=== PATIENT | female | born 2005 | race Hispanic/Latino ===

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

== ENCOUNTER 2023-07-16 02:47 | Inpatient (IN) | payer BC, MEDICAID, SELFPAY ==
[2023-07-16] MEDS ORDERED: NA CHLORIDE 0.9% 100 ML ONE ×3 (03:07→15:57)
[2023-07-16] MEDS ORDERED: NA CHLORIDE 0.9% 1,000 ML ONE (03:07)
[2023-07-16 03:50] LABS: Absolute Basophils 0.1 K/uL (0-0.5); Absolute Lymphocytes (CBC) 3.1 K/uL (0.7-4.9); Absolute Monocytes 1.2 K/uL (0.1-1.3); Absolute Neutrophil 9.7 K/uL (1.8-8.0); Basophils % 0.4 % (0-1.3); Eosinophils % 0.1 % (0-4.4); Hematocrit 38.2 % (36.0-45.0); Hemoglobin 13.1 g/dL (12.0-15.0); MCH 27.7 pg (27.0-35.0); MCHC 34.2 g/dL (32.0-36.0); MCV 81.1 fL (80-100); MPV 7.6 fL (7.6-11.3); Monocytes % 8.3 % (3.3-12.3); Neutrophils % 69.2 % (41.7-73.7); Nucleated Red Blood Cells % 0.1 % (0-0); Platelets 327 thou/uL (152-406); RBC Red Blood Cell Count 4.71 M/uL (3.86-4.86); Red Cell Distribution Width 13.1 % (12.1-15.2)
[2023-07-16 03:58] LABS: Albumin 3.8 g/dL (3.4-5.0); Albumin/Globulin Ratio 0.8 (1.1-1.8); Anion Gap 15.3 mEq/L (5.0-15.0); Globulin 4.5 g/dL (2.3-3.5); Potassium 3.3 mEq/L (3.5-5.1); Protein, Total 8.3 g/dL (6.4-8.2)
--- NOTE | 2023-07-16 05:05 | EDPHYS ---
Physician Documentation [facility] Name: Carolyne Busch Age: 17 yrs Sex: Female : 2005 Arrival Date: 07/16/2023 Time: 02:47 Bed 7 Private MD: ED Physician Silvestre Espinoza HPI: 07/15 03:03 This 17 yrs old Female presents to ER via Ambulatory with complaints of sp3 Abscess, Leg Pain. 03:03 17-year-old female with no past medical history presents with right buttock abscess sp3 that she states she first noticed 2 days ago. No other symptoms reported. No prior history of perirectal abscess or cutaneous abscess in that area. Patient denies fever, chest pain, shortness of breath, abdominal pain, bleeding, or any other signs or symptoms on ROS at this time.. Historical: - Allergies: 02:59 No Known Allergies; rv - Home Meds: 02:59 None [Active]; rv - PMHx: 02:59 None; rv - PSHx: 02:59 None; rv - Immunization history:: Adult Immunizations up to date. - Infectious Disease History:: Denies. - Social history:: Smoking status: Patient denies any tobacco usage or history of. ROS: 03:04 Constitutional: Negative for fever, chills, and weight loss, Eyes: Negative for injury, sp3 pain, redness, and discharge, ENT: Negative for injury, pain, and discharge, Neck: Negative for injury, pain, and swelling, Cardiovascular: Negative for chest pain, palpitations, and edema, Respiratory: Negative for shortness of breath, cough, wheezing, and pleuritic chest pain, Abdomen/GI: Negative for abdominal pain, nausea, vomiting, diarrhea, and constipation, Back: Negative for injury and pain, MS/Extremity: Negative for injury and deformity, Neuro: Negative for headache, weakness, numbness, tingling, and seizure, Psych: Negative for depression, anxiety, suicide ideation, homicidal ideation, and hallucinations, Allergy/Immunology: Negative for hives, rash, and allergies, Endocrine: Negative for neck swelling, polydipsia, polyuria, polyphagia, and marked weight changes, 03:04 All other systems are negative, Exam: 03:04 Constitutional: This is a well developed, well nourished patient who is awake, alert, sp3 and in no acute distress. Head/Face: Normocephalic, atraumatic. Eyes: Pupils equal round and reactive to light, extra-ocular motions intact. Lids and lashes normal. Conjunctiva and sclera are non-icteric and not injected. Cornea within normal limits. Periorbital areas with no swelling, redness, or edema. Neck: Trachea midline, no thyromegaly or masses palpated, and no cervical lymphadenopathy. Supple, full range of motion without nuchal rigidity, or vertebral point tenderness. No Meningismus. Chest/axilla: Normal chest wall appearance and motion. Nontender with no deformity. No lesions are appreciated. Cardiovascular: Regular rate and rhythm with a normal S1 and S2. No gallops, murmurs, or rubs. Normal PMI, no JVD. No pulse deficits. Respiratory: Lungs have equal breath sounds bilaterally, clear to auscultation and percussion. No rales, rhonchi or wheezes noted. No increased work of breathing, no retractions or nasal flaring. Back: No spinal tenderness. No costovertebral tenderness. Full range of motion. MS/ Extremity: Pulses equal, no cyanosis. Neurovascular intact. Full, normal range of motion. Neuro: Awake and alert, GCS 15, oriented to person, place, time, and situation. Cranial nerves II-XII grossly intact. Motor strength 5/5 in all extremities. Sensory grossly intact. Cerebellar exam normal. Normal gait. Psych: Awake, alert, with orientation to person, place and time. Behavior, mood, and affect are within normal limits. 03:04 Abdomen/GI: Abdomen exam is normal. Patient has a large 5 to 6 cm x 5 to 6 cm by unknown depth abscess on the right buttock. It is approximately 5 to 6 cm from the anus. No rectal discharge noted., Vital Signs: 02:58 BP 132 / 65; Pulse 110; Resp 16; Temp 98; Pulse Ox 99% on R/A; rv 03:45 BP 107 / 59; Pulse 95; Resp 16; Pulse Ox 100% on R/A; rv 04:17 BP 104 / 60; Pulse 95; Resp 18 S; Pulse Ox 100% on R/A; ha1 05:00 BP 107 / 50; Pulse 91; Resp 18 S; Pulse Ox 100% on R/A; ha1 MDM: 02:53 Patient medically screened. sp3 03:05 Data reviewed: vital signs, nurses notes, lab test result(s), radiologic studies. ED sp3 course: Large cutaneous versus perirectal abscess. CT scan of the pelvis with IV contrast is pending along with laboratory values. Antibiotics will be started intravenously. Abscess is already mildly draining but will likely need surgical drainage in the OR suite given the size and location for optimal outcome. She will also need proper packing which will be better performed with proper anesthesia.. 07/15 03:02 Order name: CBC with Diff; Complete Time: 04:03 sp3 07/15 03:02 Order name: CMP; Complete Time: 04:03 sp3 07/15 03:10 Order name: HCG-Quantitative; Complete Time: 04:03 rv 07/15 05:54 Order name: CBC with Automated Diff EDMS 07/15 05:54 Order name: CBC with Automated Diff EDMS 07/15 05:54 Order name: Comprehensive Metabolic Panel EDMS 07/15 05:54 Order name: Comprehensive Metabolic Panel EDMS 07/15 03:02 Order name: CT Pelvis w cont sp3 07/15 05:54 Order name: CONS Physician Consult EDMS 07/15 03:02 Order name: IV Saline Lock; Complete Time: 03:10 sp3 07/15 03:02 Order name: Labs collected and sent; Complete Time: 03:10 sp3 07/15 03:02 Order name: NPO; Complete Time: 03:10 sp3 Administered Medications: 03:10 Drug: NS 0.9% IV 1000 ml IV at 1 bolus Per protocol; 1000 mL bolus Route: IV; Rate: 1 rv bolus; Site: left antecubital; 03:44 Follow up: IV Status: Completed infusion; IV Intake: 1000ml rv 03:10 Drug: Ampicillin-Sulbactam Sodium IVPB 3 grams IVPB once over 30 mins; (mix in 100 mL rv NS) Route: IVPB; Infused Over: 30 mins; Site: left antecubital; 03:44 Follow up: Response: No adverse reaction; IV Status: Completed infusion; IV Intake: rv 100ml Disposition Summary: 07/16/23 05:04 Hospitalization Ordered Notes: Hospitalization Status: Observation sp3 Provider: Oleg Ayala spMaikel Condition: Stable sp3 Problem: new sp3 Symptoms: have worsened sp3 Bed/Room Type: Standard sp3 Location: Intensive Care Unit(07/16/23 05:30) kmf Room Assignment: 2-(07/16/23 05:30) km Diagnosis - Cutaneous abscess, early sepsis sp3 Forms: - Medication Reconciliation Form sp3 - SBAR form sp3 - Leadership Thank You Letter sp3 Signatures: Dispatcher [employer] Abdulaziz De Luna RN RN Silvestre Barahona MD MD sp3 Akila Saldana [facility] Corrections: (The following items were deleted from the chart) 05:30 05:04 Telemetry/MedSurg (observation) sp3 km 05:30 05:04 sp3 km
--- NOTE | 2023-07-16 05:05 | ER ---
Nurse's Notes [facility] Name: Carolyne Bushc Age: 17 yrs Sex: Female : 2005 Arrival Date: 07/16/2023 Time: 02:47 Bed 7 Private MD: Diagnosis: Cutaneous abscess, early sepsis Presentation: 07/15 02:58 Chief complaint: Patient states: abscess on the back of the right leg, with pus and rv blood discharge. pain and redness around the wound. denies fever. Coronavirus screen: At this time, the client does not indicate any symptoms associated with coronavirus-19. Ebola Screen: No symptoms or risks identified at this time. Initial Sepsis Screen: Does the patient meet any 2 criteria? No. Patient's initial sepsis screen is negative. Does the patient have a suspected source of infection? No. Patient's initial sepsis screen is negative. Risk Assessment: Do you want to hurt yourself or someone else? Patient reports no desire to harm self or others. Onset of symptoms was July 16, 2023. 02:58 Method Of Arrival: Ambulatory rv 02:58 Acuity: ADRIANA 4 rv 03:11 Acuity: ADRIANA 3 rv Triage Assessment: 02:59 General: Appears comfortable, Behavior is calm, cooperative. Pain: Complains of pain in rv right hamstring. Neuro: Level of Consciousness is awake, alert, obeys commands, Oriented to person, place, time, situation. Cardiovascular: Capillary refill < 3 seconds Patient's skin is warm and dry. Respiratory: Airway is patent Respiratory effort is even, unlabored. GI: No signs and/or symptoms were reported involving the gastrointestinal system. : No signs and/or symptoms were reported regarding the genitourinary system. Derm: Skin is intact. Historical: - Allergies: 02:59 No Known Allergies; rv - Home Meds: 02:59 None [Active]; rv - PMHx: 02:59 None; rv - PSHx: 02:59 None; rv - Immunization history:: Adult Immunizations up to date. - Infectious Disease History:: Denies. - Social history:: Smoking status: Patient denies any tobacco usage or history of. Screenin:00 [facility] ED Fall Risk Assessment (Adult) History of falling in the last 3 months, rv including since admission No falls in past 3 months (0 pts) Score/Fall Risk Level 0 - 2 = Low Risk Oriented to surroundings, Maintained a safe environment, Educated pt \T\ family on fall prevention, incl call for assistance when getting out of bed, Assessed \T\ reinforced patient's understanding of fall precautions. Abuse screen: Denies threats or abuse. Denies injuries from another. Nutritional screening: No deficits noted. Tuberculosis screening: No symptoms or risk factors identified. Assessment: 03:00 Reassessment: Patient and/or family updated on plan of care and expected duration. Pain ha1 level reassessed. Patient is alert, oriented x 3, equal unlabored respirations, skin warm/dry/pink. 04:00 Reassessment: Patient and/or family updated on plan of care and expected duration. Pain ha1 level reassessed. Patient is alert, oriented x 3, equal unlabored respirations, skin warm/dry/pink. 05:00 Reassessment: Patient and/or family updated on plan of care and expected duration. Pain ha1 level reassessed. Patient is alert, oriented x 3, equal unlabored respirations, skin warm/dry/pink. Vital Signs: 02:58 BP 132 / 65; Pulse 110; Resp 16; Temp 98; Pulse Ox 99% on R/A; rv 03:45 BP 107 / 59; Pulse 95; Resp 16; Pulse Ox 100% on R/A; rv 04:17 BP 104 / 60; Pulse 95; Resp 18 S; Pulse Ox 100% on R/A; ha1 05:00 BP 107 / 50; Pulse 91; Resp 18 S; Pulse Ox 100% on R/A; ha1 ED Course: 02:51 Patient arrived in ED. gm2 02:53 Silvestre Espinoza MD is Attending Physician. sp3 02:59 Triage completed. rv 02:59 Arm band placed on right wrist. rv 03:00 Patient has correct armband on for positive identification. Client placed on continuous rv cardiac and pulse oximetry monitoring. NIBP monitoring applied. 03:00 No provider procedures requiring assistance completed. rv 03:10 CBC with Diff Sent. rv 03:10 CMP Sent. rv 03:10 Initial lab(s) drawn, by me, sent to lab. Inserted saline lock: 20 gauge in left rv antecubital area, using aseptic technique. Blood collected. 03:16 HCG-Quantitative Sent. rv 04:17 Abdulaziz Craig, RN is Primary Nurse. rv 04:26 CT Pelvis w cont In Process Unspecified. EDMS 05:03 Oleg Ayala MD is Hospitalizing Provider. sp3 06:00 Patient admitted, IV remains in place. rv Administered Medications: 03:10 Drug: NS 0.9% IV 1000 ml IV at 1 bolus Per protocol; 1000 mL bolus Route: IV; Rate: 1 rv bolus; Site: left antecubital; 03:44 Follow up: IV Status: Completed infusion; IV Intake: 1000ml rv 03:10 Drug: Ampicillin-Sulbactam Sodium IVPB 3 grams IVPB once over 30 mins; (mix in 100 mL rv NS) Route: IVPB; Infused Over: 30 mins; Site: left antecubital; 03:44 Follow up: Response: No adverse reaction; IV Status: Completed infusion; IV Intake: rv 100ml Medication: 03:00 VIS not applicable for this client. rv Intake: 03:44 IV: 100ml; Total: 100ml. rv 03:44 IV: 1000ml; Total: 1100ml. rv Outcome: 05:04 Decision to Hospitalize by Provider. sp3 05:59 Admitted to ICU accompanied by nurse, via wheelchair, room 2, with chart, rv 05:59 Condition: good 05:59 Instructed on the need for admit, 06:17 Patient left the ED. rv Signatures: Dispatcher [employer] EDAZ Abdulaziz Craig, RN RN rv Silvestre Espinoza MD MD sp3 Tonia Edmonds RN RN ha1 Jigna Gutierrez [facility]
[2023-07-16] MEDS ORDERED: ACETAMINOPHEN 500 MG TAB PO PRN (05:47)
[2023-07-16] MEDS ORDERED: MORPHINE 2 MG/ML SYR IV PRN (05:47)
--- NOTE | 2023-07-16 05:47 | P.HP ---
Certification for Inpatient Patient admitted to: Observation With expected LOS: <2 Midnights Patient will require the following post-hospital care: None Practitioner: I am a practitioner with admitting privileges, knowledge of patient current condition, hospital course, and medical plan of care. Services: Services provided to patient in accordance with Admission requirements found in Title 42 Section 412.3 of the Code of Federal Regulations Patient History Date of Service: 07/16/23 Reason for admission: Right buttock abscess History of Present Illness: 17-year-old female with no past medical history who presented today because of right buttock pain and swelling since the last 2 days. She thinks she must have shaving the area prior to onset of symptoms. She denies any fever or chills but admits to worsening pain and swelling over the area. She admits to some nausea but no further vomiting. On arrival in the ED vital signs were stable afebrile, WBC was mildly elevated at 13,000 with left shift, sodium was [address] of the pelvis shows large abscess over the right buttock region fibroatelectasis 5 x 6 cm. Small oozing from the apex noted. Surgical consult with Dr. Acharya has been obtained for incision and drainage,. Patient anxious to be discharged as soon as possible. Allergies No Known Allergies Allergy (Unverified 04/16/18 13:20) Home medications list reviewed: No - Past Medical/Surgical History Has patient received pneumonia vaccine in the past: No Diabetic: No Past Medical History: Patient denies medical history Past Surgical History: Patient denies surgical history - Family History Family History: Reviewed- Non-Contributory - Social History Smoking Status: Never smoker CD- Drugs: No Caffeine use: No Place of Residence: Home Review of Systems 10-point ROS is otherwise unremarkable Physical Examination - Physical Exam General: Alert, In no apparent distress, Oriented x3, Cooperative HEENT: Atraumatic, Normocephalic, PERRLA Neck: Supple, 2+ carotid pulse no bruit, JVD not distended Respiratory: Clear to auscultation bilaterally, Normal air movement Cardiovascular: No edema, Regular rate/rhythm, Normal S1 S2 Gastrointestinal: Normal bowel sounds, Soft and benign, Non-distended Musculoskeletal: Swelling, Erythema (right buttock), Tenderness Neurological: Normal gait, Normal strength at 5/5 x4 extr, Cranial nerves 3-12 intact - Studies Laboratory Data (last 24 hrs) 07/16/23 07/16/23 03:09 03:09 WBC 13.90 H Hgb 13.1 Hct 38.2 Plt Count 327 Sodium 134 L Potassium 3.3 L BUN 10 Creatinine 0.82 Glucose 109 H Total Bilirubin 1.0 AST 18 ALT 26 Alkaline Phosphatase 80 Assessment and Plan - Plan Impression Right buttock abscess Plan Will consult surgery for incision and drainage Start empirical Unasyn Pain control Gentle IV fluid Replete potassium Possible discharge post incision and drainage later today - Advance Directives Does patient have a Living Will: No Does patient have a Durable POA for Healthcare: No Physician Review: Patient Assessed, Agree with Above Assessment and Plan Critical Care: No Time Spent Managing Pts Care (In Minutes): 65
[2023-07-16] MEDS: D5NS KCL 20MEQ 20 MEQ/1,000 ML BAG IV SCH ×2 (06:00→07:46)
[2023-07-16] MEDS: POTASSIUM 25 MEQ EFFERV TAB PO ONE (06:44)
[2023-07-16] MEDS ORDERED: AMPICILLIN/SULBACTAM 3GM/VIAL ONE ×2 (07:40→15:57)
[2023-07-16] MEDS: AMPICILLIN/SULBACT 3 GM in NA CHLORIDE 0.9% 100 ML IVPB SCH (07:46)
--- NOTE | 2023-07-16 10:34 | P.CNS ---
Date of Consult: 07/16/23 Reason for consult: Right buttock pain History of present illness: Patient is a 17-year-old female presented to the emergency room with 3-day history of pain on the right buttock associated with minimal discharge and redness. Patient has a fairly large subcutaneous abscess with minimal drainage. She denies any sore throat, runny nose, cough, headaches or dizziness. Patient denies chest pain, fever or chills. Patient states that this infection may have started after she was shaving in that region. Review of systems: Otherwise unremarkable Past medical history: Negative Past surgical history: Negative Allergies: None Social history: Patient denies smoking or drinking alcohol Family history: Noncontributory Vital signs: Stable, afebrile Physical exam: Awake, alert and oriented x 3 Head and neck exam: No masses Chest: Clear Heart: S1-S2 Abdomen: Soft Extremity: Neurovascularly intact intact Neuro: Nonfocal Buttock: Right buttock with 6 x 6 cm area of erythema, warmth, edema and central fluctuance with minimal purulent discharge Diagnostic data: White count is 13.[address] of the pelvis is consistent with cellulitis no large fluid collection is seen Assessment: Right buttock abscess and cellulitis Plan/recommendation: Admit, n.p.o., IV fluids and IV antibiotics. To the OR for incision, drainage and debridement of right buttock abscess. Patient understands risk, benefits and alternatives and agrees to procedure. CC:
[2023-07-16] MEDS ORDERED: KETOROLAC 30 MG/ML INJ ONE (10:36)
[2023-07-16] MEDS ORDERED: LIDOCAINE 1% MPF 5 ML VIAL ONE (10:36)
[2023-07-16] MEDS ORDERED: ONDANSETRON 4 MG/2 ML VIAL ONE (10:36)
[2023-07-16] MEDS ORDERED: FENTANYL CITR 100 MCG/2 ML ONE (10:37)
[2023-07-16] MEDS ORDERED: propofoL 200 MG/20 ML VIAL IV ONE (10:37)
[2023-07-16] MEDS ORDERED: MIDAZOLAM HCL 2 MG/2 ML INJ ONE (10:37)
[2023-07-16] MEDS: Ringers Lactate 1,000 ML IV ONE (10:54)
[2023-07-16] MEDS: CEFAZOLIN SODIUM 1 GM/VIAL ONE (11:07)
[2023-07-16] MEDS: AMPICILLIN/SULBACTAM 3GM/VIAL ONE (11:35)
[2023-07-16] MEDS: BUPIVACAINE 0.5% PF 10 ML VIAL ONE (11:39)
--- NOTE | 2023-07-16 11:54 | P.OP ---
Date of Service: 07/16/23 Preop diagnosis: Right buttock abscess and cellulitis Postop diagnosis: Same Procedure performed: Incision, drainage and debridement of right buttock abscess Surgeon: Xander Acharya MD Credit Checker: Yamile[employer] YEAGER Estimated blood loss: Minimal Specimen: Pus Findings: As above Anesthesia: General Complications: None Drains: None Fluids and blood products: Nonapplicable Disposition: Recovery room Operative note: Patient brought to the OR and placed in supine position. General anesthesia began. Patient placed in lithotomy position. Patient prepped and draped in the usual sterile fashion. Marcaine 0.5% infiltrated locally for postop pain control. 15 blade used to make a 4 cm incision. Subcu tissue divided. Pus under pressure evacuated and cultures taken. Wound irrigated and bleeding controlled cautery. Loculations broken up. Necrotic tissue debrided. Wet-to-dry normal saline dressing change applied. Patient taught the procedure in stable condition taken to recovery room in good general condition. CC:
[2023-07-16] MEDS ORDERED: HYDROMORPHONE HCL 1 MG/ML INJ IV PRN (12:18)
[2023-07-16] MEDS ORDERED: CHLORHEXIDINE GLUCO 4% 120 ML TOP SCH (12:18)
[2023-07-16 12:39] VITALS: O2SAT 98
[2023-07-16] MEDS: NA CHLORIDE 0.9% 1,000 ML IV ONE (17:15)
[2023-07-16] MEDS: NA CHLORIDE 0.9% 500 ML IV ONE (17:35)
[2023-07-16] MEDS ORDERED: HYDROCODONE/APAP 7.5/325 MG TAB ONE (17:59)
[2023-07-16] MEDS: HYDROCODONE/APAP 7.5/325 MG TAB PO PRN (18:02)
[2023-07-16] MEDS: MUPIROCIN 2% OINT 22GM TUBE TOP SCH (20:21)
[2023-07-16] MEDS ORDERED: MUPIROCIN 2% OINT 22GM TUBE TOP SCH (21:00)
[2023-07-17] MEDS ORDERED: NA CHLORIDE 0.9% 100 ML ONE ×2 (01:58→08:05)
[2023-07-17] MEDS ORDERED: AMPICILLIN/SULBACTAM 3GM/VIAL ONE ×2 (01:58→08:05)
[2023-07-17 04:52] LABS: Absolute Eosinophils 0.1 K/uL (0-0.5); Absolute Lymphocytes (CBC) 3.2 K/uL (0.7-4.9); Absolute Monocytes 0.6 K/uL (0.1-1.3); Absolute Neutrophil 4.1 K/uL (1.8-8.0); Basophils % 0.3 % (0-1.3); Eosinophils % 0.8 % (0-4.4); Hematocrit 31.9 % (36.0-45.0); Hemoglobin 10.9 g/dL (12.0-15.0); Lymphocytes % 39.8 % (15.3-44.8); MCH 28.2 pg (27.0-35.0); MCHC 34.2 g/dL (32.0-36.0); MCV 82.5 fL (80-100); MPV 7.4 fL (7.6-11.3); Monocytes % 7.8 % (3.3-12.3); Neutrophils % 51.3 % (41.7-73.7); Nucleated Red Blood Cells % 0.2 % (0-0); Platelets 273 thou/uL (152-406); RBC Red Blood Cell Count 3.87 M/uL (3.86-4.86); Red Cell Distribution Width 13.2 % (12.1-15.2)
[2023-07-17 05:04] LABS: Albumin 2.6 g/dL (3.4-5.0); Albumin/Globulin Ratio 0.8 (1.1-1.8); Bilirubin Total 0.3 mg/dL (0.2-1.0); Globulin 3.3 g/dL (2.3-3.5); Protein, Total 5.9 g/dL (6.4-8.2)
[2023-07-17 07:11] VITALS: BMI 33.0
[2023-07-17 08:30] VITALS: TEMP 97.8
[2023-07-17] MEDS ORDERED: HYDROCODONE/APAP 7.5/325 MG TAB ONE (09:47)
[2023-07-17 13:12] VITALS: BP 91/59
--- NOTE | 2023-07-17 14:07 | P.DS ---
Admission Date: 07/16/23 Discharge Date: 07/17/23 Disposition: ROUTINE DISCHARGE Discharge Condition: GOOD Reason for Admission: Right buttock abscess Brief History of Present Illness: 17-year-old female with no past medical history who presented today because of right buttock pain and swelling since the last 2 days. She thinks she must have shaving the area prior to onset of symptoms. She denies any fever or chills but admits to worsening pain and swelling over the area. She admits to some nausea but no further vomiting. On arrival in the ED vital signs were stable afebrile, WBC was mildly elevated at 13,000 with left shift, sodium was [address] of the pelvis shows large abscess over the right buttock region fibroatelectasis 5 x 6 cm. Small oozing from the apex noted. Surgical consult with Dr. Acharya has been obtained for incision and drainage,. Patient anxious to be discharged as soon as possible. - Physical Exam General: Alert, In no apparent distress, Oriented x3, Cooperative HEENT: Atraumatic, Normocephalic, PERRLA Neck: Supple, 2+ carotid pulse no bruit, JVD not distended Respiratory: Clear to auscultation bilaterally, Normal air movement Cardiovascular: No edema, Regular rate/rhythm, Normal S1 S2 Gastrointestinal: Normal bowel sounds, Soft and benign, Non-distended Musculoskeletal: Swelling, Erythema (right buttock), Tenderness Neurological: Normal gait, Normal strength at 5/5 x4 extr, Cranial nerves 3-12 intact Hospital Course: 17 year-old female patient presented with Right buttock abscess. She was evaluated by surgery was taken to ER for incision and drainage. Condition improved with IV antibiotics, as needed analgesics. Patient tolerating diet, stable for discharge to home with follow-up appointment with primary care physician. Follow-up with surgery after discharge PROBLEM: Right buttock abscess. Status post incision and drainage by Dr. Acharya 07/15 Family was told by the nurse to do dressing changes prior to discharge. She needs to follow-up with surgery as directed P.o. antibiotics, p.o. analgesics per surgery. No driving while on narcotics or operating heavy equipment Continue home medicines as previously prescribed GOAL: Clear understanding of disease process INSTRUCTIONS: Physician Discharge Instructions: -Follow-up with PCP in 1 to 2 weeks -Please call Dr. Ulrich at [phone] if any questions regarding hospital stay -Please call nursing station at [phone] if any nursing or medication questions -Return to the emergency room if symptoms worsen Diet: ADA, low sodium Activity: Fall precautions Vital Signs/Physical Exam: Temp Pulse Resp BP Pulse Ox 97.8 F 69 14 91/59 L 97 07/17/23 12:46 07/17/23 12:46 07/17/23 12:46 07/17/23 12:46 07/17/23 12:46 Laboratory Data at Discharge: WBC 8.00 thou/uL (4.3-10.9) 07/17/23 04:25 Hgb 10.9 g/dL (12.0-15.0) L D 07/17/23 04:25 Hct 31.9 % (36.0-45.0) L 07/17/23 04:25 Plt Count 273 thou/uL (152-406) 07/17/23 04:25 Sodium 141 mEq/L (136-145) D 07/17/23 04:25 Potassium 4.0 mEq/L (3.5-5.1) D 07/17/23 04:25 BUN 3 mg/dL (7-18) L 07/17/23 04:25 Creatinine 0.58 mg/dL (0.55-1.02) 07/17/23 04:25 Glucose 112 mg/dL (74-106) H 07/17/23 04:25 Total Bilirubin 0.3 mg/dL (0.2-1.0) 07/17/23 04:25 AST 11 U/L (15-37) L 07/17/23 04:25 ALT 19 U/L (13-56) 07/17/23 04:25 Alkaline Phosphatase 53 U/L (45-117) D 07/17/23 04:25 Home Medications: NK [No Home Meds] 07/16/23 Physician Discharge Instructions: May shower Wet-to-dry normal saline dressing changes daily Teach patient and family Home health if needed Antibiotics and pain medicine per hospitalist Follow-up my office 1 to 2 weeks, call for appointment Resume home meds and diet Activity as tolerated no heavy lifting Diet: Regular Activity: No lifting more than 10 lbs Followup: NONE,NONE [Primary Care Provider] - Xander Acharya MD [ACTIVE - CAN ADMIT] - 1-2 Weeks Time spent managing pt's care (in minutes): 55
[2023-07-17] MEDS: AMPICILLIN/SULBACT 3 GM in NA CHLORIDE 0.9% 100 ML IVPB SCH (15:00)
--- NOTE | 2023-07-17 15:34 | PN ---
Date of Progress Note: 07/17/2023 Subjective: Patient is awake, alert, a little better. Vitals stable, afebrile. White count is norm al. Dressing is clean, dry, and intact. Gram stain shows 2+ Staph coag positive. Assessment: Status post I and D and debridement of right buttock abscess. Recommendations: Patient can be discharged home on oral antibiotics with coverage for MRSA. Wound c are is ordered. Follow up in my office in 1 to 2 weeks. Pain medicine and antibiotics per the hospi talist team. Plan of care discussed with patient's family and the hospitalist team. /MODL Voice ID: [id number] Report ID: [id number]
--- NOTE | 2023-07-18 23:00 | RAD REPORT ---
EXAM DESCRIPTION: CT - Pelvis W/Cont - 07/16/2023 7:04 am CLINICAL HISTORY: The patient is 17 years old and is Female; abscess on buttock Bed Name: 7 TECHNIQUE: Axial computed tomography images of the pelvis with intravenous contrast. Sagittal and coronal reformatted images were created and reviewed. This CT exam was performed using one or more of the following dose reduction techniques: automated exposure control, adjustment of the mA and/or kV according to patient size, and/or use of iterative reconstruction technique. COMPARISON: No relevant prior studies available. FINDINGS: BOWEL: Unremarkable No obstruction. No mucosal thickening. APPENDIX: No findings to suggest acute appendicitis. INTRAPERITONEAL SPACE: Unremarkable No free air. No significant fluid collection. BLADDER: Unremarkable No mass. REPRODUCTIVE: Unremarkable as visualized. BONES/JOINTS: No acute fracture. No dislocation. SOFT TISSUES: Diffuse skin thickening and underlying subcutaneous edema demonstrated along the infe rior right gluteal fold with no underlying fluid collection to suggest abscess. Additional similar bu t much smaller focus of inflammation demonstrated in the white inguinal cutaneous an subcutaneous tis sues. No subcutaneous emphysema to suggest a gas-forming infectious process, penetrating injury, or fistula/tract. VASCULATURE: Unremarkable as visualized . LYMPH NODES: Reactive appearing bilateral inguinal and right external iliac chain lymphadenopathy. IMPRESSION: 1. Diffuse skin thickening and underlying subcutaneous edema demonstrated along the in ferior right gluteal fold, compatible with cellulitis. No underlying fluid collection to suggest absc ess. Additional similar but much smaller focus of inflammation demonstrated in the white inguinal cut aneous an subcutaneous tissues. 2. No subcutaneous emphysema to suggest a gas-forming infectious process, penetrating injury, or fi stula/tract. 3. Reactive appearing bilateral inguinal and right external iliac chain lymphadenopathy. Electronically signed by: Silver Delgado MD 07/16/2023 05:49 AM CDT Due to temporary technical issues with the PACS/Fluency reporting system, reports are being signed by the in house radiologists without review as a courtesy to insure prompt reporting. The interpreting radiologist is fully responsible for the content of the report.
== END 2023-07-17 15:00 | disposition home or self-care (01) | DRG 572 ==
LOC: ER 02:47 → 3RD-ICU 05:47 → OBSVTOIN 17:08 → 4TH 07-17 13:23
PROVIDERS: ADMIT Internal Medicine; ATTEND Hospitalist
PROC: 0JB90ZZ Excision of Buttock Subcutaneous Tissue and Fascia, Open Approach (ICD-10-PCS; principal; 2023-07-16 12:15)
DX: L03.317 Cellulitis of buttock (principal); L02.31 Cutaneous abscess of buttock
CPT/HCPCS: 36415; 72193; 80053; 84702; 85025; 87070; 87075; 87077; 87186; 87205; 96365; 97161; 99285; G0378; J0295; J0690; J2001; J2250; J2405; J2704; J3010; J3480; J7030; J7120; Q9967